=== PATIENT | male | born 1975 | race Caucasian/White ===

== ENCOUNTER → 2017-03-19 | Outpatient (CLI) | payer BC ==
[~2017-03-19] MED LIST: ANAPROX DS550 MG PO; DARVOCET-N 1001 EACH PO; FLEXERIL PO; PERCOCET 5-3251 EACH PO; ZOLOFT; ZOLOFT100 MG
== END ==
LOC: RAD 10:00
DX: D86.9 Sarcoidosis, unspecified (principal); R06.00 Dyspnea, unspecified